=== PATIENT | male | born 1955 | race Caucasian/White ===

== ENCOUNTER → 2018-05-26 | Outpatient (CLI) | payer BC ==
[~2018-05-26] VITALS: Ht 177.8 cm; Wt 83.9 kg
[~2018-05-26] MED LIST: DOXYCYCLINE 10100 MG PO; ELIQUIS5 M1 PO; FELODIPINE ER2.5 MG PO; MOBIC15 MG PO; NABUMETONE 750750 M1 PO; NIFEDIPINE10 MG PO
[2018-05-26 08:28] LABS: HEMATOCRIT 38.4 % (42.0-52.0); HEMOGLOBIN 13.1 gm/dL (14.0-18.0); MCH 30.1 pg (26.0-34.0); MCV 88.5 fL (80.0-100.0); RBC 4.34 mil/uL (4.50-6.00); RDW 13.2 % (10.5-14.5); WBC 8.7 thou/uL (4.0-11.0)
[2018-05-26 08:29] VITALS: BP 130/77
[2018-05-26 08:36] LABS: CALCIUM 9.4 mg/dL (8.5-10.1); POTASSIUM 4.1 mmol/L (3.5-5.1)
[2018-05-26 12:42] VITALS: BP 118/76
[2018-05-26 12:47] VITALS: BP 118/76
[2018-05-26 13:00] VITALS: BP 118/76
[2018-05-26 13:15] VITALS: BP 110/76
--- NOTE | 2018-05-26 14:19 | NUR ---
1415----PT TO ECHO PER CART. SANFORD PARSON
--- NOTE | 2018-05-26 15:21 | 2DMMODE ---
[facility] [place] [address] 2 D/M-MODE ECHOCARDIOGRAM Name: GHADA BAUER Room #: REG [facility]#: [id number] ������������� Admission: 05/26/18 ������������� Attend Phys: Goldy Coyne, Discharge: ��� ������������� ��� Date of : 53 Date of Service: 05/26/18 1521 �� Report #: [id number] �������� ��������������������������������������������[id number] THIS REPORT FOR: //name// APPROVED REPORT Study performed: 05/26/2018 14:23:32 EXAM: Comprehensive 2D, Doppler, and color-flow Echocardiogram Patient Location: Out-Patient Status: routine BSA: 2.02 HR: 62 bpm BP: 110/76 mmHg Rhythm: NSR Other Information Study Quality: Adequate/low window. Technically limited study due to lung artifact. Indications Atrial Fibrillation extremity ischemia, black finger. 2D Dimensions RVDd: 37.33 mm IVSd: 9.64 (7-11mm) LVOT Diam: 22.66 (18-24mm) LVDd: 48.45 mm PWd: 8.67 (7-11mm) LVDs: 32.97 (25-40mm) Aortic Root: 40.29 mm Volumes Left Atrial Volume (Systole) Single Plane 4CH: 32.42 mL Single Plane 2CH: 28.54 mL LA ESV Index: 17.00 mL/m2 Aortic Valve AoV Peak Flavio.: 1.28 m/s AO Peak Gr.: 6.51 mmHg Mitral Valve E/A Ratio: 0.8 MV Decel. Time: 213.08 ms MV E Max Flavio.: 0.63 m/s [facility] [address] [place] [address] 2 D/M-MODE ECHOCARDIOGRAM Name: GHADA BAUER Room #: REG [facility]#: [id number] ������������� Admission: 05/26/18 ������������� Attend Phys: Goldy Coyne, Discharge: ��� ������������� ��� Date of : 53 Date of Service: 05/26/18 1521 �� Report #: [id number] �������� ��������������������������������������������[id number] MV A Flavio.: 0.75 m/s MV PHT: 61.79 ms IVRT: 106.11 ms Pulmonary Vein P Vein S: 0.64 m/s P Vein A: 0.31 m/s P Vein D: 0.43 m/s P Vein A Dur.: 138.4 msec P Vein S/D Ratio: 1.49 Tricuspid Valve TR Peak Flavio.: 2.67 m/s RAP Estimate: 5.00 mmHg TR Peak Gr.: 28.58 mmHg PA Pressure: 35.00 mmHg Left Ventricle The left ventricle is normal size. There is normal LV segmental wall motion. There is normal left ventricular wall thickness. Left ventricular systolic function is normal. LVEF is 55%. Mild diastolic dysfunction is present (impaired relaxation pattern). Right Ventricle The right ventricle is normal size. The right ventricular systolic function is normal. Atria The left atrium size is normal. The right atrium size is normal. Aortic Valve Aortic valve is trileaflet, mildly thickened. Trace aortic regurgitation. There is no aortic valvular stenosis. Mitral Valve The mitral valve is normal in structure. Trace to mild mitral regurgitation. Tricuspid Valve The tricuspid valve is normal in structure. Mild tricuspid regurgitation. Estimated PAP is 35mmHg. Pulmonic Valve Pulmonic valve is not well visualized. Great Vessels Aortic root is mildly dilated at 4.0cm. Ascending aorta is not well visualized. IVC is normal in size and collapses >50% with [facility] [address] [place] [address] 2 D/M-MODE ECHOCARDIOGRAM Name: GHADA BAUER Room #: REG [facility].#: [id number] ������������� Admission: 05/26/18 ������������� Attend Phys: Goldy Coyne, Discharge: ��� ������������� ��� Date of : 53 Date of Service: 05/26/18 1521 �� Report #: [id number] �������� ��������������������������������������������[id number] inspiration. Pericardium There is no pericardial effusion. <Conclusion> The left ventricle is normal size. LVEF is 55%. Aortic valve is trileaflet, mildly thickened. Trace aortic regurgitation. The mitral valve is normal in structure. Trace to mild mitral regurgitation. The tricuspid valve is normal in structure. Mild tricuspid regurgitation. Estimated PAP is 35mmHg. Pulmonic valve is not well visualized. There is no pericardial effusion. ��������������������������������������������� <ELECTRONICALLY SIGNED> ���������������������������������������� By: Too Hernández MD ��������������������������������������������� 05/26/18 1521 1521 1521 Too Hernández MD /INF
== END | disposition home or self-care (01) ==
LOC: CATH 07:58
PROVIDERS: Nuclear Medicine Nuclear Cardiology
DX: I73.89 Other specified peripheral vascular diseases (principal); I74.2 Embolism and thrombosis of arteries of the upper extremities; I70.1 Atherosclerosis of renal artery; I08.3 Combined rheumatic disorders of mitral, aortic and tricuspid valves; M25.541 Pain in joints of right hand; I10 Essential (primary) hypertension; K21.9 Gastro-esophageal reflux disease without esophagitis; F17.210 Nicotine dependence, cigarettes, uncomplicated; Z98.890 Other specified postprocedural states; Z79.899 Other long term (current) drug therapy; Z79.01 Long term (current) use of anticoagulants

== ENCOUNTER → 2018-05-31 | Outpatient (CLI) | payer BC | LOC: HYPER 06:47 | DX: I73.9 Peripheral vascular disease, unspecified (principal); I99.8 Other disorder of circulatory system; I74.2 Embolism and thrombosis of arteries of the upper extremities; G90.09 Other idiopathic peripheral autonomic neuropathy; F17.200 Nicotine dependence, unspecified, uncomplicated; Z79.01 Long term (current) use of anticoagulants ==

== ENCOUNTER → 2018-06-03 | Outpatient (CLI) | payer BC | LOC: HYPER 07:03 | DX: I70.25 Atherosclerosis of native arteries of other extremities with ulceration (principal); L98.491 Non-pressure chronic ulcer of skin of other sites limited to breakdown of skin; I74.2 Embolism and thrombosis of arteries of the upper extremities; I99.8 Other disorder of circulatory system; G60.3 Idiopathic progressive neuropathy; K21.9 Gastro-esophageal reflux disease without esophagitis; M19.90 Unspecified osteoarthritis, unspecified site; F41.9 Anxiety disorder, unspecified; F17.200 Nicotine dependence, unspecified, uncomplicated; F32.9 Major depressive disorder, single episode, unspecified; Z79.01 Long term (current) use of anticoagulants ==

== ENCOUNTER → 2018-06-17 | Outpatient (CLI) | payer BC | LOC: HYPER 06:47 | DX: I70.25 Atherosclerosis of native arteries of other extremities with ulceration (principal); L98.491 Non-pressure chronic ulcer of skin of other sites limited to breakdown of skin; I74.2 Embolism and thrombosis of arteries of the upper extremities; I99.8 Other disorder of circulatory system; G60.3 Idiopathic progressive neuropathy; K21.9 Gastro-esophageal reflux disease without esophagitis; M79.644 Pain in right finger(s); M19.90 Unspecified osteoarthritis, unspecified site; F17.200 Nicotine dependence, unspecified, uncomplicated; F41.9 Anxiety disorder, unspecified; F32.9 Major depressive disorder, single episode, unspecified; Z79.01 Long term (current) use of anticoagulants ==

== ENCOUNTER → 2018-06-24 | Outpatient (CLI) | payer BC | LOC: HYPER 07:10 | DX: I70.25 Atherosclerosis of native arteries of other extremities with ulceration (principal); L98.491 Non-pressure chronic ulcer of skin of other sites limited to breakdown of skin; I74.2 Embolism and thrombosis of arteries of the upper extremities; I99.8 Other disorder of circulatory system; G60.3 Idiopathic progressive neuropathy; K21.9 Gastro-esophageal reflux disease without esophagitis; M19.90 Unspecified osteoarthritis, unspecified site; F41.9 Anxiety disorder, unspecified; F17.200 Nicotine dependence, unspecified, uncomplicated; F32.9 Major depressive disorder, single episode, unspecified; Z79.01 Long term (current) use of anticoagulants ==